=== PATIENT | female | born 1955 | race Caucasian/White ===

== ENCOUNTER 2020-11-05 10:30 | Outpatient (CLI) | payer BC | END 2020-11-05 10:31 | disposition home or self-care (01) | LOC: CSHMAMMO 10:30 | PROVIDERS: ATTEND Family Medicine | DX: Z12.31 Encounter for screening mammogram for malignant neoplasm of breast (principal) | CPT/HCPCS: 77063; 77067 ==

== ENCOUNTER 2021-12-03 10:22 | Outpatient (CLI) | payer MEDICARE | END 2021-12-03 10:23 | disposition home or self-care (01) | LOC: CSHMAMMO 10:22 | PROVIDERS: ATTEND Family Medicine | DX: Z12.31 Encounter for screening mammogram for malignant neoplasm of breast (principal) | CPT/HCPCS: 77063; 77067 ==

== ENCOUNTER 2022-12-07 09:22 | Outpatient (CLI) | payer MEDICARE | END 2022-12-07 09:23 | disposition home or self-care (01) | LOC: CSHMAMMO 09:22 | PROVIDERS: ATTEND Family Medicine | DX: Z12.31 Encounter for screening mammogram for malignant neoplasm of breast (principal) | CPT/HCPCS: 77063; 77067 ==

== ENCOUNTER 2023-12-09 10:06 | Outpatient (CLI) | payer MEDICARE | END 2023-12-09 10:07 | disposition home or self-care (01) | LOC: CSHMAMMO 10:06 | PROVIDERS: ATTEND Family Medicine | DX: Z12.31 Encounter for screening mammogram for malignant neoplasm of breast (principal) | CPT/HCPCS: 77063; 77067 ==

== ENCOUNTER 2024-08-31 09:31 | Outpatient (CLI) | payer MEDICARE | END 2024-08-31 09:32 | disposition home or self-care (01) | LOC: CSHMAMMO 09:31 | PROVIDERS: ATTEND Student in an Organized Health Care Education/Training Program | DX: M85.88 Other specified disorders of bone density and structure, other site (principal); Z78.0 Asymptomatic menopausal state | CPT/HCPCS: 77080 ==

== ENCOUNTER 2025-04-15 09:15 | Outpatient (CLI) | payer MEDICARE | END 2025-04-15 09:16 | disposition home or self-care (01) | LOC: CSHSLEEP 09:15 | PROVIDERS: ATTEND Student in an Organized Health Care Education/Training Program | DX: G47.33 Obstructive sleep apnea (adult) (pediatric) (principal); E66.9 Obesity, unspecified; Z68.36 Body mass index [BMI] 36.0-36.9, adult; R06.83 Snoring | CPT/HCPCS: 95810 ==